=== PATIENT | female | born 1975 | race Caucasian/White ===

== ENCOUNTER 2019-02-16 08:52 | Emergency (ER) | payer MEDICARE, MEDICAID ==
[~2019-02-16] VITALS: Ht 165.1 cm; Wt 68.0 kg
[2019-02-16] MEDS ORDERED: dexamethasone sod phosphate 10mg/ml inj PO STA (09:25)
[2019-02-16] MEDS ORDERED: DOXY100C43 PO (10:08)
[2019-02-16 10:18] VITALS: BP 119/59
== END 2019-02-16 10:19 | disposition home or self-care (01) ==
LOC: ER 08:52
DX: J02.9 Acute pharyngitis, unspecified (principal); J32.9 Chronic sinusitis, unspecified; Z98.890 Other specified postprocedural states; Z88.0 Allergy status to penicillin; Z88.2 Allergy status to sulfonamides; Z79.899 Other long term (current) drug therapy
CPT/HCPCS: 70360; 99283; J1100; 99284